=== PATIENT | male | born 1955 | race Caucasian/White ===

== ENCOUNTER → 2020-01-26 09:56 | Outpatient (CLI) | payer BC, SELFPAY ==
--- NOTE | ~2020-01-26 | XR_ITS ---
EXAMINATION: XR UGIAC w small bowel EXAM DATE: 01/26/2020 11:38 INDICATION: Episodes of upper abdominal pain. TECHNIQUE: Forwarder Operator radiograph was acquired. Standard single and double contrast barium upper GI examina tion was performed followed by small bowel series. Spot images of the terminal ileum were acquired. The DAP for this procedure was 7.8 Gycm2. There is no prior study for comparison. FINDINGS: There is no esophageal stricture, diverticulum or mass identified. There is small sliding g astroesophageal hiatal hernia, small amount of reflux. The stomach has a normal appearance without evidence of mass lesion, ulceration or filling defect. T here is normal rugal fold pattern. The duodenum and duodenal sweep are normal in appearance. Ileal and jejunal fold patterns are normal. There is no small bowel wall thickening or mass effect d isplacing small bowel. There are no intraluminal filling defects identified. There is no small malini l dilation. Terminal ileum is normal in appearance. Contrast reached the colon at about 15 minutes, rapid transit time. IMPRESSION: Small sliding hiatal hernia, small amount of reflux. Reviewed, dictated and finalized at location B.
== END ==
PROVIDERS: PCP Internal Medicine; Visit Provider Internal Medicine
DX: R10.9 Unspecified abdominal pain (principal); K44.9 Diaphragmatic hernia without obstruction or gangrene
CPT/HCPCS: 74246; 74248

== ENCOUNTER 2021-01-04 01:09 | Day surgery (SDC) | payer BC, SELFPAY ==
[2020-12-27 09:53] VITALS: BMI 25.0
[2021-01-04 06:32] VITALS: BP 131/78; PULSE 67; RESP 16; TEMP 36.3; O2SAT 98
[2021-01-04] MEDS: LACTATED RINGERS 1,000 ML 150 ML IV CONT (06:46)
[2021-01-04 06:50] LABS: Glucose Point of Care 137 mg/dl (65-105)
--- NOTE | 2021-01-04 07:08 | WPDANESEPPF ---
Anes - Initial Pre Proc Eval Procedure: Operation Date: 01/04/21 07:30 Proposed Procedures p Screening Colonoscopy - Zurdo Gallo MD Date/Time: 01/04/21 07:08 Surgeon: Zurdo Gallo MD Pre Op Diagnosis: neoplasm screening Patient Data Age: 65 Gender: M Height: 1.78 m Weight: 74.8 kg Last Vital Signs Temp 97.4 F L 01/04/21 06:32 Pulse 67 01/04/21 06:32 Resp 16 01/04/21 06:32 BP 131/78 01/04/21 06:32 Pulse Ox 98 01/04/21 06:32 Allergies Allergy/AdvReac Type Severity Reaction Status Date / Time No Known Allergies Allergy Verified 01/04/21 06:27 Home Medications Medication Instructions Recorded Confirmed Type finasteride 5 mg tablet 5 mg PO DAILY tablet 06/17/19 01/04/21 History fluocinonide 0.05 % topical cream 1 applic TOPICAL BID #15 gm 06/17/19 01/04/21 Rx insulin pump syringe 1.8 mL #10 each 06/17/19 01/04/21 History triamcinolone acetonide 0.1 % 1 applic TOPICAL BID #15 gm 06/17/19 01/04/21 Rx topical cream B complex-C 500 mg-folic 400 1 tablet PO DAILY 01/19/20 01/04/21 History mcg-zinc 24 mg-copper 3 mg-vit E tablet duloxetine 30 mg capsule,delayed 30 mg PO DAILY 10/19/20 01/04/21 History release sodium,potassium,mag sulfates See Rx Instructions .ROUTE 12/26/20 Rx [Suprep Bowel Prep Kit] .COMPLEX #1 ml doxazosin 8 mg PO DAILY 12/27/20 01/04/21 History icosapent ethyl [Vascepa] 2 g PO BID 12/27/20 01/04/21 History insulin lispro [Humalog U-100 See Rx Instructions .ROUTE .COMPLEX 12/27/20 01/04/21 History Insulin] insulin pump syringe [Paradigm 12/27/20 01/04/21 History [place]] losartan 25 mg PO DAILY 12/27/20 01/04/21 History simvastatin 10 mg PO DAILY 12/27/20 01/04/21 History Laboratory Tests 01/04/21 06:46 POC Capillary Glucose 137 mg/dl H mg/dl (65-105) Patient hx anesthesia problems: none Family hx anesthesia problems: none [facility] Past Medical History Medical History (Updated 10/19/20 @ 12:20 by Ansley Hunt [employer]IM CONTROLLER) Abdominal pain Benign essential hypertension BMI 24.0-24.9, adult BMI 25.0-25.9,adult Colon cancer screening Depressed mood Diabetes mellitus type 2, insulin dependent Encounter for routine adult health examination without abnormal findings Encounter for special screening examination for neoplasm of prostate Gastroparesis Hearing loss History of elevated PSA Medial epicondylitis of right elbow Mucocele of buccal mucosa RLS (restless legs syndrome) Sciatica Short-term memory loss Tinnitus of both ears Trigger finger of right hand Family History Family History Father Diabetes mellitus Hypertension Family history of arthritis Family history of Alzheimer's disease Mother Family history of arthritis Family history of lymphoma Social History Social History Smoking status: Never smoker Alcohol intake: current Drinks per week: 4 Alcohol use details: WINE Substance use: never Substance use type: does not use Living arrangements: alone Spiritual care concerns: No Anes - Eval Final PreProcedure Day of Procedure 01/04/21 07:08 Patient weight: normal Heart: regular rate and rhythm Lungs: clear to auscultation Airway: Mallampati scale class II Neurological: alert and oriented Last oral intake: >/= 8 hours ASA classification: III Emergent: no Anesthetic plan: proceed Anesthesia type and monitoring: general GIVS and standard monitoring Informed Consent: The patient's anesthetic plan and its attendant risks and benefits were discussed with the patient/family/POA. Questions were solicited and answers provided to the satisfaction of the patient/family/POA.
--- NOTE | 2021-01-04 07:10 | PM.HPGS ---
History of Present Illness History of Present Illness Consent: Risks, benefits, and alternatives have been discussed and questions answered. Patient agrees to proceed with procedure. Chief complaint: neoplasm screening Narrative: Caesar Jackson is a 65 year old male referred for colon cancer screening. His last colonoscopy was 10 years ago Review of Systems Review of Systems: All systems reviewed & are unremarkable except as noted in HPI and below PMFSH Past Medical History Medical History Abdominal pain Benign essential hypertension BMI 24.0-24.9, adult BMI 25.0-25.9,adult Colon cancer screening Depressed mood Diabetes mellitus type 2, insulin dependent Encounter for routine adult health examination without abnormal findings Encounter for special screening examination for neoplasm of prostate Gastroparesis Hearing loss History of elevated PSA Medial epicondylitis of right elbow Mucocele of buccal mucosa RLS (restless legs syndrome) Sciatica Short-term memory loss Tinnitus of both ears Trigger finger of right hand Family History Family History Father Diabetes mellitus Hypertension Family history of arthritis Family history of Alzheimer's disease Mother Family history of arthritis Family history of lymphoma Social History Social History Smoking status: Never smoker Alcohol intake: current Drinks per week: 4 Alcohol use details: WINE Substance use: never Substance use type: does not use Living arrangements: alone Spiritual care concerns: No Meds Home Medications and Allergies Home Medications Medication Instructions Recorded Confirmed Type finasteride 5 mg tablet 5 mg PO DAILY tablet 06/17/19 01/04/21 History fluocinonide 0.05 % topical cream 1 applic TOPICAL BID #15 gm 06/17/19 01/04/21 Rx insulin pump syringe 1.8 mL #10 each 06/17/19 01/04/21 History triamcinolone acetonide 0.1 % 1 applic TOPICAL BID #15 gm 06/17/19 01/04/21 Rx topical cream B complex-C 500 mg-folic 400 1 tablet PO DAILY 01/19/20 01/04/21 History mcg-zinc 24 mg-copper 3 mg-vit E tablet duloxetine 30 mg capsule,delayed 30 mg PO DAILY 10/19/20 01/04/21 History release sodium,potassium,mag sulfates See Rx Instructions .ROUTE 12/26/20 Rx [Suprep Bowel Prep Kit] .COMPLEX #1 ml doxazosin 8 mg PO DAILY 12/27/20 01/04/21 History icosapent ethyl [Vascepa] 2 g PO BID 12/27/20 01/04/21 History insulin lispro [Humalog U-100 See Rx Instructions .ROUTE .COMPLEX 12/27/20 01/04/21 History Insulin] insulin pump syringe [Paradigm 12/27/20 01/04/21 History [place]] losartan 25 mg PO DAILY 12/27/20 01/04/21 History simvastatin 10 mg PO DAILY 12/27/20 01/04/21 History Allergies Allergy/AdvReac Type Severity Reaction Status Date / Time No Known Allergies Allergy Verified 01/04/21 06:27 Vital Signs Vital Signs - 24 hr 01/04/21 06:32 Temperature 36.3 C L Pulse Rate 67 Respiratory Rate 16 Blood Pressure 131/78 Pulse Oximetry 98 Exam Resp: Auscultation: clear to auscultation bilaterally Cardio: Rate: regular rate Rhythm: regular rhythm GI: GI Palp: Yes Soft to palpation and No Tenderness to palpation present (GI) Assessment and Plan Assessment and plan (1) Colon cancer screening: Code(s): Z12.11 - Encounter for screening for malignant neoplasm of colon Status: Acute Assessment and Plan: Colonoscopy with possible biopsy or polypectomy or cautery or injection of substances.
[2021-01-04 07:45] VITALS: BP 101/61; PULSE 49; RESP 16; O2SAT 98
[2021-01-04 07:55] VITALS: BP 107/67; PULSE 53; RESP 16; O2SAT 99
[2021-01-04 07:57] LABS: Glucose Point of Care 125 mg/dl (65-105)
== END 2021-01-04 08:20 | disposition home or self-care (01) ==
PROVIDERS: PCP Internal Medicine; Visit Provider Internal Medicine Gastroenterology
PROC: 0DJD8ZZ Inspection of Lower Intestinal Tract, Via Natural or Artificial Opening Endoscopic (ICD-10-PCS; CPT 45378; principal; 2021-01-04 07:30)
DX: Z12.11 Encounter for screening for malignant neoplasm of colon (principal); K57.30 Diverticulosis of large intestine without perforation or abscess without bleeding; I10 Essential (primary) hypertension; F32.9 Major depressive disorder, single episode, unspecified; E11.9 Type 2 diabetes mellitus without complications; E11.43 Type 2 diabetes mellitus with diabetic autonomic (poly)neuropathy; K31.84 Gastroparesis; Z79.4 Long term (current) use of insulin; G25.81 Restless legs syndrome
CPT/HCPCS: 45378; 82948; J2704; J7120

== ENCOUNTER 2021-06-04 10:05 | Outpatient (CLI) | payer BC, SELFPAY ==
--- NOTE | 2021-06-04 10:00 | ECG_ITS ---
Measurements Intervals [place] Rate: 59 P: 51 RI: 139 QRS: 13 QRSD: 102 T: 24 QT: 401 QTc: 399 Interpretive Statements SINUS BRADYCARDIA INCOMPLETE RIGHT BUNDLE BRANCH BLOCK BORDERLINE ECG Electronically Signed On 06-04-2021 11:41:50 CIVIL ENGINEER by Dayron Jon D.O.
[2021-06-04 11:43] LABS: Anion Gap 3 mmol/L (8-16); Blood Urea Nitrogen 20 mg/dL (9-20); Calcium 9.1 mg/dL (8.4-10.2); Carbon Dioxide 25 mmol/L (22-30); Chloride 106 mmol/L (98-107); Estimated Glomerular Filt Rate > 60; Glucose 186 mg/dL (65-110); Sodium 134 mmol/L (137-145)
== END 2021-06-04 10:06 | disposition home or self-care (01) ==
LOC: ANHSURGERY 10:10
PROVIDERS: Anesthesiology; PCP Internal Medicine; Visit Provider Urology
DX: N40.0 Benign prostatic hyperplasia without lower urinary tract symptoms (principal); E11.9 Type 2 diabetes mellitus without complications; Z79.4 Long term (current) use of insulin; I10 Essential (primary) hypertension; Z01.818 Encounter for other preprocedural examination; I45.10 Unspecified right bundle-branch block
CPT/HCPCS: 36415; 80048; 87086; 93005

== ENCOUNTER 2021-06-11 01:45 | Day surgery (SDC) | payer BC, SELFPAY ==
[2021-05-29 12:43] VITALS: BMI 25.9
--- NOTE | 2021-05-29 13:06 | PC.NURSE ---
Report to the Outpatient Waiting Room, entrance under the green pavilion located off [facility], at time __6:00AM on date __06/11/21 . OR Time: ___7:30AM . - You and your visitor will be asked a series of questions to screen for COVID 19 for your protection. - A mask is required within the hospital. - Only one visitor is allowed at this time. Patient visitors will be guided where to wait when not with patient. Preoperative COVID Testing Requirements: No COVID Test needed if: (proof is required; if not received patient will have Rapid Test prior to entry) - Patient has received COVID Vaccine at least 14 days prior to procedure date or - Patient has positive COVID test result within last 90 days of surgery date. COVID Test needed if above criteria is not met If not COVID vaccinated a COVID test must be conducted within 72 hours of surgery and patient is asked to isolate self from time of testing until procedure. You will go to the [facility] for your COVID testing. The [facility] Testing site is located at the corner of [address] from [facility]. You will only be called if COVID results are positive and your surgeon may reschedule your elective surgery date. Patients may have clear liquids (water, carbonated beverages, clear teas, apple juice) until 3 hours prior to surgery with a maximum of 20 ounces. - No food from midnight until time of surgery - Infants may have breast milk until 4 hours before surgery, infant formula 6 hours prior to surgery. - Children will be allowed to drink immediately following surgery. If applicable, please bring a bottle or sippy cup to assist with drinking. Juice, water, soda, and popsicles are readily available. For infants on formula, please bring formula the day of surgery. Pacifiers are allowed. Take the following medications with a SIP of water the morning of surgery: ___DULOXETINE, BASAL RATE-INSULIN PUMP Medications to discontinue per physician ALL VITAMINS/SUPPLEMENTS 3 DAYS PRE-OP Date to take last dose 06/08/21 Please no make-up, nail khmer, hairspray, perfume, deodorant, or body powder the day of surgery. No jewelry (including any body piercings) or valuables the day of surgery, leave them at home. Please take a shower or bath the night before, or the morning of, surgery with an antibacterial soap. Wear comfortable, loose fitting clothing. Children are encouraged to wear pajamas. - Jewelry must be removed prior to entering the operating room. Rings and piercings that are not removed may be cut off. - The hospital will not accept responsibility for valuables. - Please leave all valuables, including medications, at home the day of surgery. If you are going home after surgery, a licensed truck driver heavy must drive you home. - NO public transportation without another adult. - We recommend that an adult stay with you for 24 hours following discharge. - We also recommend that you do not drive, make important decision, drink alcoholic beverages, or take any drugs that were not prescribed by your health care provider for at least 24 hours after your discharge time. For Pediatric surgeries, we recommend two adults accompany the child home (only one inside the building at this time). Follow any additional instructions given to you from your surgeon. Telephone instructions given to __PATIENT and asked if any additional questions and then verbalized understanding. Patient advised to call surgeon office or pre surgery nurse liaison [phone] if any additional questions.
[2021-06-11] VITALS (7 sets, daily range): BP systolic 122–178; BP diastolic 67–96; PULSE 52–67; RESP 14–16; TEMP 36.9; O2SAT 96–99
[2021-06-11] MEDS: LACTATED RINGERS 1,000 ML 30 ML IV CONT (06:30)
[2021-06-11 06:36] LABS: Glucose Point of Care 127 mg/dl (65-105)
--- NOTE | 2021-06-11 06:54 | WPDANESEPPF ---
Anes - Initial Pre Proc Eval Procedure: Operation Date: 06/11/21 07:30 Proposed Procedures p Urolift - Stoney Burnette MD Date/Time: 06/11/21 06:54 Surgeon: Stoney Burnette MD Pre Op Diagnosis: bph Patient Data Age: 66 Gender: M Height: 1.78 m Weight: 82.9 kg Allergies Allergy/AdvReac Type Severity Reaction Status Date / Time No Known Allergies Allergy Verified 05/29/21 12:36 Home Medications Medication Instructions Recorded Confirmed Type finasteride 5 mg tablet 5 mg PO DAILY tablet 06/17/19 05/29/21 History insulin pump syringe 1.8 mL #10 each 06/17/19 04/26/21 History B complex-C 500 mg-folic 400 1 tablet PO DAILY 01/19/20 05/29/21 History mcg-zinc 24 mg-copper 3 mg-vit E tablet duloxetine 30 mg capsule,delayed 30 mg PO DAILY 10/19/20 05/29/21 History release Paradigm [place] 12/27/20 04/26/21 History doxazosin 8 mg PO DAILY 12/27/20 05/29/21 History icosapent ethyl [Vascepa] 2 g PO BID 12/27/20 05/29/21 History losartan 25 mg PO QAM 12/27/20 05/29/21 History simvastatin 10 mg PO DAILY 12/27/20 05/29/21 History coenzyme Q10 75 mg capsule 75 mg PO DAILY 03/06/21 05/29/21 History triamcinolone acetonide 0.1 % 1 applic TOPICAL BID PRN #15 gm 03/06/21 05/29/21 Rx topical cream insulin aspart U-100 [Novolog See Rx Instructions .ROUTE .COMPLEX 05/29/21 05/29/21 History U-100 Insulin aspart] Laboratory Tests 06/11/21 06:34 POC Capillary Glucose 127 mg/dl H mg/dl (65-105) Patient hx anesthesia problems: none Family hx anesthesia problems: none Results Review: All pre-operative results and documents have been reviewed as part of the pre-operative evaluation. [facility] Past Medical History Medical History (Updated 04/25/21 @ 12:03 by Ansley Hunt [facility]) Abdominal pain Benign essential hypertension BMI 24.0-24.9, adult BMI 25.0-25.9,adult BMI 26.0-26.9,adult Colon cancer screening Depressed mood Diabetes mellitus type 2, insulin dependent Diverticulosis Elevated PSA Encounter for routine adult health examination without abnormal findings Encounter for special screening examination for neoplasm of prostate Gastroparesis Hearing loss History of elevated PSA Low back pain Medial epicondylitis of right elbow Mucocele of buccal mucosa RLS (restless legs syndrome) Sciatica Short-term memory loss Shoulder pain, bilateral Tinnitus of both ears Trigger finger of right hand Family History Family History Father Diabetes mellitus Hypertension Family history of arthritis Family history of Alzheimer's disease Mother Family history of arthritis Family history of lymphoma Social History Social History Smoking status: Never smoker Tobacco type: cigars Additional smoking assessment comments: 1 CIGAR/MONTH, X 20 YRS Alcohol intake: current Drinks per week: 4 Alcohol use details: WINE Substance use: never Substance use type: does not use Living arrangements: alone Spiritual care concerns: No Anes - Eval Final PreProcedure Day of Procedure 06/11/21 06:54 Patient weight: overweight Heart: regular rate and rhythm Lungs: clear to auscultation and normal air movement Airway: Mallampati scale class II Neurological: alert and oriented Last oral intake: >/= 8 hours ASA classification: III Emergent: no Anesthetic plan: proceed Anesthesia type and monitoring: general GIVS and LMA Results Review: All pre-operative results and documents have been reviewed as part of the pre-operative evaluation. Informed Consent: The patient's anesthetic plan and its attendant risks and benefits were discussed with the patient/family/POA. Questions were solicited and answers provided to the satisfaction of the patient/family/POA.
--- NOTE | 2021-06-11 07:31 | WPDHPUPDATE1 ---
History and Physical Update Update Date/Time: 06/11/21 07:31 History and Physical has been reviewed, including an updated exam of the patient. There are NO changes in the patient's condition. Risks, benefits, and alternatives have been discussed and questions answered. Patient agrees to proceed with procedure. Proceed with urolift
[2021-06-11] MEDS: ceFAZolin 2 GM/D5W 50 ML 2 GM/50 ML BAG IVPB (07:38)
--- NOTE | 2021-06-11 08:07 | W.PM.PROC2 ---
Procedure Note - Detailed Date of Procedure 06/11/21 Pre-op Diagnosis bph Post-op Diagnosis same Procedure Performed UroLift with 6 zehra Surgeon Stoney Burnette MD Anesthesia general Description of Procedure Patient is taken the operative suite correctly identified. Once anesthesia was obtained was placed in dorsal lithotomy position and prepped and draped usual sterile fashion. A cystoscope was inserted into the bladder. There were no tumors noted. We placed a total of 6 zehra. The 1st zehra were placed 1 cm proximal to the bladder neck on the right and left lobe. Second set were placed at the level of the verumontanum. Third set was used to displace the right lobe in the midportion to the right. Patient had what appeared to be an open prostatic fossa at termination procedure. 2% viscous lidocaine was inserted urethra patient is taken recovery stable condition. Drains No Packing No Pathology none sent Complications No immediate complications Condition stable Disposition PACU
[2021-06-11] MEDS: oxyCODONE HCL (*CRX) 5 MG TAB IR PO (08:45)
[2021-06-11 10:21] LABS: Glucose Point of Care 130 mg/dl (65-105)
== END 2021-06-11 10:48 | disposition home or self-care (01) ==
PROVIDERS: PCP Internal Medicine; Visit Provider Urology
PROC: 0T7D8DZ Dilation of Urethra with Intraluminal Device, Via Natural or Artificial Opening Endoscopic (ICD-10-PCS; CPT 52441; principal; 2021-06-11 07:30)
DX: N40.1 Benign prostatic hyperplasia with lower urinary tract symptoms (principal); R39.198 Other difficulties with micturition; R39.12 Poor urinary stream; I10 Essential (primary) hypertension; E11.9 Type 2 diabetes mellitus without complications; G25.81 Restless legs syndrome; K31.84 Gastroparesis; Z79.4 Long term (current) use of insulin; Z96.41 Presence of insulin pump (external) (internal); F17.290 Nicotine dependence, other tobacco product, uncomplicated
CPT/HCPCS: 52441; 52442 ×5; 82948; A9270; J0690; J1100; J2250; J2405; J2704; J3010; J7120; L8699

== ENCOUNTER 2021-06-18 09:02 | Outpatient (CLI) | payer BC, SELFPAY ==
[2021-06-18 09:38] LABS: Basophils Percent Auto 0.3 % (0.2-1.2); Eosinophils Absolute Auto 0.2 K/mm3 (0-0.3); Eosinophils Percent Auto 3.8 % (0-4.4); Hematocrit 36.3 % (42.0-52.0); Hemoglobin 12.6 g/dL (14.0-18.0); Immature Granulocyte Absolute 0.02 K/mm3 (0.00-0.031); Immature Granulocyte Percent A 0.3 % (0-0.5); Lymphocytes Absolute Auto 1.45 K/mm3 (0.9-3.2); Mean Corpuscular HGB Conc 34.7 g/dl (32-36); Mean Corpuscular Hemoglobin 30.4 pg (26-34); Mean Corpuscular Volume 87.7 fl (80-100); Mean Platelet Volume 10.9 fl (7.4-10.4); Monocytes Absolute Auto 0.6 K/mm3 (0.1-0.6); Monocytes Percent Auto 9.8 % (2.6-8.5); Neutrophils Absolute Auto 3.5 K/mm3 (1.3-6.7); Neutrophils Percent Auto 60.8 % (45.5-73.1); Platelet Count Result 171 k/mm3 (150-375); Red Blood Count 4.14 M/mm3 (4.6-6.20); Red Cell Distribution Width 11.9 % (11.5-14.5); White Blood Count 5.8 K/mm3 (4.5-10.0)
[2021-06-18 09:48] LABS: Alanine Aminotransferase 28 U/L (4-50); Albumin Level 4.4 g/dL (3.5-5.1); Alkaline Phosphatase 81 U/L (38-126); Anion Gap 10 mmol/L (8-16); Aspartate Amino Transferase 34 U/L (17-59); Bilirubin,Total 0.5 mg/dL (0.2-1.3); Blood Urea Nitrogen 19 mg/dL (9-20); Calcium 9.2 mg/dL (8.4-10.2); Carbon Dioxide 27 mmol/L (22-30); Chloride 99 mmol/L (98-107); Estimated Glomerular Filt Rate > 60; Glucose 230 mg/dL (65-110); Potassium 4.5 mmol/L (3.4-5.0); Sodium 136 mmol/L (137-145)
[2021-06-18 09:59] LABS: Troponin I < 0.012 ng/mL (0.000-0.034)
== END 2021-06-18 09:03 | disposition home or self-care (01) ==
PROVIDERS: PCP Internal Medicine; Visit Provider Internal Medicine
DX: E78.5 Hyperlipidemia, unspecified (principal); I10 Essential (primary) hypertension; Z51.81 Encounter for therapeutic drug level monitoring; Z79.899 Other long term (current) drug therapy; R07.89 Other chest pain
CPT/HCPCS: 36415; 80053; 84484; 85025

== ENCOUNTER 2021-07-22 02:38 | Day surgery (SDC) | payer BC, SELFPAY ==
[2021-07-19 16:36] VITALS: BMI 25.9
[2021-07-22] VITALS (8 sets, daily range): BP systolic 121–140; BP diastolic 66–74; PULSE 43–57; RESP 10–21; TEMP 36.3–36.6; O2SAT 95–99; BMI 25.9
[2021-07-22] MEDS: SODIUM CHLORIDE 0.9% IV 500 ML 100 ML IV CONT (07:33)
[2021-07-22 07:41] LABS: Basophils Percent Auto 0.5 % (0.2-1.2); Eosinophils Absolute Auto 0.2 K/mm3 (0-0.3); Eosinophils Percent Auto 3.9 % (0-4.4); Hematocrit 36.1 % (42.0-52.0); Hemoglobin 12.4 g/dL (14.0-18.0); Immature Granulocyte Absolute 0.01 K/mm3 (0.00-0.031); Immature Granulocyte Percent A 0.2 % (0-0.5); Lymphocytes Absolute Auto 1.67 K/mm3 (0.9-3.2); Lymphocytes Percent Auto 28.4 % (18.3-44.2); Mean Corpuscular HGB Conc 34.3 g/dl (32-36); Mean Corpuscular Hemoglobin 30.2 pg (26-34); Mean Platelet Volume 10.9 fl (7.4-10.4); Monocytes Absolute Auto 0.5 K/mm3 (0.1-0.6); Monocytes Percent Auto 8.2 % (2.6-8.5); Neutrophils Absolute Auto 3.5 K/mm3 (1.3-6.7); Neutrophils Percent Auto 58.8 % (45.5-73.1); Platelet Count Result 160 k/mm3 (150-375); Red Cell Distribution Width 12.4 % (11.5-14.5); White Blood Count 5.9 K/mm3 (4.5-10.0)
[2021-07-22 07:45] LABS: Anion Gap 9 mmol/L (8-16); Blood Urea Nitrogen 20 mg/dL (9-20); Carbon Dioxide 25 mmol/L (22-30); Chloride 104 mmol/L (98-107); Estimated CRCL calculation 82 ml/min; Estimated Glomerular Filt Rate > 60; Glucose 214 mg/dL (65-110); Potassium 3.9 mmol/L (3.4-5.0); Sodium 138 mmol/L (137-145)
[2021-07-22 07:46] LABS: Prothrombin Time 12.3 Seconds (11.1-14.7)
--- NOTE | 2021-07-22 08:25 | WPDMODSED ---
Moderate Sedation Note-Pt Data Patient Data Allergies Allergy/AdvReac Type Severity Reaction Status Date / Time No Known Allergies Allergy Verified 07/19/21 17:19 Home Medications Medication Instructions Recorded Confirmed Type finasteride 5 mg tablet 5 mg PO DAILY tablet 06/17/19 07/19/21 History insulin pump syringe 1.8 mL #10 each 06/17/19 06/28/21 History duloxetine 30 mg capsule,delayed 30 mg PO DAILY 10/19/20 07/22/21 History release Paradigm [facility] 12/27/20 06/28/21 History icosapent ethyl [Vascepa] 2 g PO BID 12/27/20 07/22/21 History losartan 25 mg PO QAM 12/27/20 07/19/21 History insulin aspart U-100 [Novolog See Rx Instructions .ROUTE .COMPLEX 05/29/21 07/22/21 History U-100 Insulin aspart] nitroglycerin 0.4 mg sublingual 0.4 mg SUBLINGUAL Q5M PRN #25 06/18/21 07/22/21 Rx tablet tablet doxazosin 8 mg tablet 8 mg PO DAILY #90 tablet 06/25/21 07/19/21 Rx atorvastatin 20 mg tablet 20 mg PO DAILY #90 tablet 06/28/21 07/19/21 Rx metoprolol succinate 25 mg 25 mg PO DAILY #90 tablet 06/28/21 07/19/21 Rx tablet,extended release 24 hr Osteo Bi-Flex Triple Strength 1 tablet PO BID 07/19/21 07/22/21 History aspirin 81 mg PO DAILY 07/19/21 07/22/21 History coenzyme Q10 200 mg PO DAILY 07/19/21 07/19/21 History triamcinolone acetonide 1 applic TOPICAL BID PRN 07/19/21 07/22/21 History vitamin B complex [B 1 tablet PO DAILY 07/19/21 07/22/21 History Complex-Vitamin B12] Current Medications: Active Medications Sodium Chloride (Normal Saline Iv) 500 mls @ 100 mls/hr IV CONT .Q5H DANIEL Last Admin: 07/22/21 07:33 Dose: 100 mls/hr Documented by: Sedation/Anesthesia: No previous sedation/anesthesia problems (including family history). [facility] Past Medical History Medical History (Updated 06/28/21 @ 09:25 by Ansley Hunt [facility]) Abdominal pain Abnormal stress test Anemia Benign essential hypertension BMI 24.0-24.9, adult BMI 25.0-25.9,adult BMI 26.0-26.9,adult Chest pain Colon cancer screening Depressed mood Diabetes mellitus type 2, insulin dependent Diverticulosis Elevated PSA Encounter for routine adult health examination without abnormal findings Encounter for special screening examination for neoplasm of prostate Follow up Gastroparesis Hearing loss History of elevated PSA Low back pain Medial epicondylitis of right elbow Mucocele of buccal mucosa RLS (restless legs syndrome) Sciatica Short-term memory loss Shoulder pain, bilateral Tinnitus of both ears Trigger finger of right hand Family History Family History Father Diabetes mellitus Hypertension Family history of arthritis Family history of Alzheimer's disease Mother Family history of arthritis Family history of lymphoma Social History Social History Smoking status: Light tobacco smoker Tobacco type: cigars Second hand tobacco smoke exposure: Yes Additional smoking assessment comments: occasional cigar Alcohol intake: current Drinks per week: 6 Alcohol use details: beer or wine. typically average 2 drinks in a setting. Substance use: never Substance use type: does not use Living arrangements: alone Spiritual care concerns: No Mod Sed Physical Exam Physical Exam Pre Procedural Exam: Normal: Appearance, Throat, Airway, Lungs, Heart Size, Heart Rate, Heart Rhythm and Extremities Hours since solid foods: 12 Hours since liquid intake: 12 Mallampati Classification: class II Internal Medicine - PN: Obj Da Vital Signs Vital Signs: Vital Signs - 24 hr 07/22/21 07:24 Temperature 36.6 C Pulse Rate 57 L Respiratory Rate 11 L Blood Pressure 136/66 Pulse Oximetry 98 Meds/Results Medications: Active Medications Generic Name Dose Route Start Last Admin Trade Name Freq PRN Reason Stop Dose Admin Sodium Chloride 500 mls @ 100 mls/hr 07/22/21 07:00 07/22/21 07:33 N
--- NOTE | 2021-07-22 09:03 | WPDCARDPROC ---
Cardiac Cath Procedure Note Date of procedure:: 07/22/21 Performing physician:: Jamel Moody MD Indication:: Chest pain abnormal stress test Brief clinical history:: this is a 66-year-old patient with longstanding diabetes who had an episode of chest pain recently when he was exerting in the cold weather. He has not had any subsequent symptoms. An nuclear stress test was reported as showing evidence of anterior ischemia. Procedure Procedure performed:: left ventriculogram coronary angiogram Angio-Seal to right femoral artery Sedation/Medication given:: fentanyl 50 mg Versed 2 mg case start time 843 a.m. case end time 8:59 a.m. Access site:: right femoral artery Estimated blood loss:: minimal Procedure note:: patient was brought to the cardiac catheterization lab in the postabsorptive state where the right femoral triangle was prepared and draped in the usual fashion. Anesthesia was provided with 1% lidocaine infiltrated locally. Using the modified Seldinger technique a 5 [place] sheath was placed into the right common femoral artery. After this left heart catheterization was take carried out. A 5 [place] angled pigtail catheter was used to measure left-sided hemodynamics and to perform a left ventriculogram in the our AO projection. Following this the left coronary artery was engaged and injected using a standard 5 [place] FL4 catheter. The right coronary was engaged and injected using a standard 5 [place] JR4 catheter. An angiogram was then done of the femoral artery through the sheath after which an Angio-Seal device was deployed at the site of the arterial puncture with a good hemostatic result. The procedure was well tolerated there were no apparent complications. He left the cathode washer with no evidence of groin hematoma. Findings:: Hemodynamics: Central aortic pressure was 124/58 left ventricle 124/5 end-diastolic pressure 14 there is no systolic gradient on pullback across the aortic valve. Left ventricle: The LV is normal in size all segments contract properly there were no regional wall motion abnormalities the global ejection fraction is 55% the left main coronary artery is medium in caliber and widely patent the left anterior descending is a medium caliber artery extending down to the apex. The LAD and its branches are smooth and angiographically normal in appearance circumflex is a medium caliber artery giving rise to the marginal branches which all appeared to be smooth and angiographically normal. The right coronary artery is large in caliber dominant to the posterior circulation. The right coronary is smooth and angiographically normal in appearance. Conclusion:: 1. Right coronary dominant circulation with no angiographic abnormalities 2. normal left ventricular systolic function 3. Angio-Seal to right femoral artery 4. false-positive nuclear stress test Jamel Moody MD FACC
--- NOTE | 2021-07-22 12:32 | SUR.PHASEII ---
discharge instruction reviewed with pt. Opportunity to answer questions. Pt verbalized understanding. Escorted off floor via w/c.
== END 2021-07-22 12:45 | disposition home or self-care (01) ==
PROVIDERS: PCP Internal Medicine; Visit Provider Specialist
PROC: 4A023N7 Measurement of Cardiac Sampling and Pressure, Left Heart, Percutaneous Approach (ICD-10-PCS; CPT 93452; principal; 2021-07-22 08:30)
DX: R94.39 Abnormal result of other cardiovascular function study (principal); R07.9 Chest pain, unspecified; I10 Essential (primary) hypertension; E11.9 Type 2 diabetes mellitus without complications; G25.81 Restless legs syndrome; D64.9 Anemia, unspecified; Z72.0 Tobacco use; Z79.4 Long term (current) use of insulin; Z96.41 Presence of insulin pump (external) (internal); Z79.82 Long term (current) use of aspirin
CPT/HCPCS: 36415; 80048; 85025; 85610; 93458; C1760; C1887; C1894; G0269; J1200; J1644; J2250; J3010; J7040

== ENCOUNTER 2022-10-09 11:43 | Outpatient (CLI) | payer OTHER, SELFPAY | END 2022-10-09 11:44 | disposition home or self-care (01) | PROVIDERS: PCP Internal Medicine; Visit Provider Internal Medicine | DX: M79.672 Pain in left foot (principal) | CPT/HCPCS: 73630 ==

== ENCOUNTER 2022-12-03 15:25 | Outpatient (CLI) | payer OTHER, SELFPAY ==
--- NOTE | ~2022-12-03 | XR_ITS ---
EXAM: XR shoulder RT min 2V DATE: 12/03/2022 15:38 HISTORY: M19.90 - Unspecified osteoarthritis, unspecified site . COMPARISON: None available. FINDINGS: Normal mineralization. No fracture or dislocation. No lytic or blastic lesion. Moderate de generative change at the AC joint and glenohumeral joint. No erosion or periosteal change. Soft tissu es within normal limits. IMPRESSION: Moderate right shoulder polyarticular osteoarthritis. Reviewed, dictated and finalized at location K.
== END 2022-12-03 15:26 | disposition home or self-care (01) ==
PROVIDERS: PCP Internal Medicine; Visit Provider Internal Medicine
DX: M19.011 Primary osteoarthritis, right shoulder (principal)
CPT/HCPCS: 73030

== ENCOUNTER 2023-01-13 11:21 | Outpatient (NON) | payer OTHER, SELFPAY | END 2023-01-13 11:22 | disposition home or self-care (01) | LOC: ANHLAB 01-14 11:23 | PROVIDERS: PCP Internal Medicine; Visit Provider Nurse Practitioner | DX: C44.41 Basal cell carcinoma of skin of scalp and neck (principal) | CPT/HCPCS: 88305 ==

== ENCOUNTER 2023-03-09 13:56 | Outpatient (NON) | payer OTHER, SELFPAY | END 2023-03-09 13:57 | disposition home or self-care (01) | LOC: ANHLAB 13:56 | PROVIDERS: PCP Internal Medicine; Visit Provider Nurse Practitioner | DX: C44.41 Basal cell carcinoma of skin of scalp and neck (principal) | CPT/HCPCS: 88305; 88331 ==

== ENCOUNTER 2023-05-28 17:32 | Outpatient (NON) | payer OTHER, SELFPAY | END 2023-05-28 17:33 | disposition home or self-care (01) | PROVIDERS: PCP Internal Medicine; Visit Provider Nurse Practitioner | DX: L81.4 Other melanin hyperpigmentation (principal); L57.8 Other skin changes due to chronic exposure to nonionizing radiation | CPT/HCPCS: 88305 ==

== ENCOUNTER 2024-01-26 09:30 | Outpatient (CLI) | payer BC, SELFPAY ==
--- NOTE | 2024-01-26 09:51 | ECG_ITS ---
Test Date: 2024-01-26 10:03:27 Measurements Intervals [place] Rate: 55 P: 49 [place]: 133 QRS: 30 QRSD: 100 T: 36 QT: 408 QTc: 390 Interpretive Statements SINUS BRADYCARDIA INCOMPLETE RIGHT BUNDLE BRANCH BLOCK [90+ ms QRS DURATION, TERMINAL R IN V1/V2, 40+ ms S IN I/aVL/V4/V5/V6] No previous ECG available for comparison Electronically Signed On 01-26-2024 10:25:38 CDT by Kwasi Ruiz M.D.
[2024-01-26 10:40] LABS: Anion Gap 9 mmol/L (4-12); Blood Urea Nitrogen 19 mg/dL (9-20); Calcium 8.8 mg/dL (8.4-10.2); Carbon Dioxide 27 mmol/L (22-30); Chloride 101 mmol/L (98-107); Estimated Glomerular Filt Rate > 60; Glucose 125 mg/dL (65-110); Sodium 137 mmol/L (137-145)
[2024-01-26 10:42] LABS: Basophils Percent Auto 0.4 % (0.2-1.2); Eosinophils Absolute Auto 0.1 K/mm3 (0-0.3); Eosinophils Percent Auto 1.9 % (0-4.4); Hematocrit 38.9 % (42.0-52.0); Hemoglobin 12.9 g/dL (14.0-18.0); Immature Granulocyte Absolute 0.02 K/mm3 (0.00-0.031); Immature Granulocyte Percent A 0.3 % (0-0.5); Lymphocytes Absolute Auto 1.76 K/mm3 (0.9-3.2); Lymphocytes Percent Auto 25.7 % (18.3-44.2); Mean Corpuscular HGB Conc 33.2 g/dl (32-36); Mean Corpuscular Hemoglobin 29.9 pg (26-34); Mean Platelet Volume 11.3 fl (7.4-10.4); Monocytes Absolute Auto 0.6 K/mm3 (0.1-0.6); Monocytes Percent Auto 9.3 % (2.6-8.5); Neutrophils Absolute Auto 4.3 K/mm3 (1.3-6.7); Neutrophils Percent Auto 62.4 % (45.5-73.1); Platelet Count Result 185 k/mm3 (150-375); Red Blood Count 4.32 M/mm3 (4.6-6.20); Red Cell Distribution Width 12.1 % (11.5-14.5); White Blood Count 6.9 K/mm3 (4.5-10.0)
== END 2024-01-26 09:31 | disposition home or self-care (01) ==
PROVIDERS: PCP Internal Medicine; Visit Provider Surgery
DX: E78.2 Mixed hyperlipidemia (principal); K60.1 Chronic anal fissure
CPT/HCPCS: 36415; 80048; 85025; 93005

== ENCOUNTER 2024-01-27 00:35 | Day surgery (SDC) | payer BC, SELFPAY ==
[2024-01-22 15:37] VITALS: BMI 26.2
--- NOTE | 2024-01-22 16:03 | PC.NURSE ---
Report to the Outpatient Waiting Room, entrance under the green pavilion located off [facility], at time __6:00AM on date ___01/27/24____. Planned Procedure Time: __7:30AM . Time changes happen often and if your time is changed the preop area will call you the afternoon before. - You and your visitor will be asked to self-screen and do not enter if you have any COVID symptoms. - A mask is optional within the hospital at this time. Patients may have clear liquids (water, carbonated beverages, clear teas, apple juice) until 3 hours prior to surgery with a maximum of 20 ounces. - No food from midnight until time of surgery. Take the following medications with a SIP of water the morning of surgery: ___INSULIN PUMP AT BASAL RATE DO NOT STOP ANY OF YOUR OTHER PRESCRIPTION MEDICATIONS PRIOR TO SURGERY ?EXCEPT THE FOLLOWING Medications to discontinue per physician HOLD ALL VITAMINS/SUPPLEMENTS 3 DAYS PRE-OP PER ANESTHESIA Date to take last dose 01/23/24 Please no make-up, nail senegalese, hairspray, perfume, deodorant, or body powder the day of surgery. No jewelry (including any body piercings) or valuables the day of surgery, leave them at home. Please take a shower or bath the night before, or the morning of, surgery with an antibacterial soap. Wear comfortable, loose fitting clothing. - Jewelry must be removed prior to entering the operating room. Rings and piercings that are not removed may be cut off. - The hospital will not accept responsibility for valuables. - Please leave all valuables, including medications, at home the day of surgery. If you are going home after surgery, a licensed commercial collections driver must drive you home. - NO public transportation without another adult if you receive anesthesia. - We recommend that an adult stay with you for 24 hours following discharge. - We also recommend that you do not drive, make important decision, drink alcoholic beverages, or take any drugs that were not prescribed by your health care provider for at least 24 hours after your discharge time.. Follow any additional instructions given to you from your surgeon. If you or anyone in your household have experienced Covid symptoms in the past week, please notify your surgeon or the nurse liaison at the phone number below for possible testing. Telephone instructions given to ____PATIENT and asked if any additional questions and then verbalized understanding. Patient advised to call surgeon office or pre surgery nurse liaison [phone] if any additional questions.
[2024-01-27] VITALS (8 sets, daily range): BP systolic 136–152; BP diastolic 69–94; PULSE 65–82; RESP 11–20; TEMP 36.1–36.6; O2SAT 99–100
[2024-01-27] MEDS: LACTATED RINGERS 1,000 ML 30 ML IV CONT ×2 (06:45→08:50)
[2024-01-27] MEDS: KETOROLAC 15 MG/ML VIAL (*BKC) IV PUSH (07:00)
[2024-01-27] MEDS: ACETAMINOPHEN 500 MG TABLET 1000 MG PO (07:00)
--- NOTE | 2024-01-27 07:14 | WPDANESEPPF ---
Anes - Initial Pre Proc Eval Procedure: Operation Date: 01/27/24 07:30 Proposed Procedures p Lateral Internal Sphincterotomy, Removal External Hemorrhoid - Cody Clifford MD Date/Time: 01/27/24 07:14 Surgeon: Cody Clifford MD Pre Op Diagnosis: Chr Anal Fissure Patient Data Age: 69 Gender: M Height: 1.78 m Weight: 83 kg Allergies Allergy/AdvReac Type Severity Reaction Status Date / Time No Known Allergies Allergy Verified 01/22/24 15:21 Home Medications Medication Instructions Recorded Confirmed Type insulin pump syringe 1.8 mL #10 ea 06/17/19 01/04/24 History insulin pump syringe 1.8 mL 12/27/20 01/04/24 History ([facility] [place]) losartan 25 mg tablet 25 mg PO QAM 12/27/20 01/22/24 History insulin aspart U-100 100 unit/mL See Rx Instructions .Route .COMPLEX 05/29/21 01/22/24 History subcutaneous solution (Novolog U-100 Insulin aspart) nitroglycerin 0.4 mg sublingual 0.4 mg sublingual Q5M PRN chest 06/18/21 01/22/24 Rx tablet pain #25 tabs Osteo Bi-Flex Triple Strength 2 tablet PO BID 07/19/21 01/22/24 History coenzyme Q10 200 mg tablet 200 mg PO DAILY 07/19/21 01/22/24 History vitamin B complex (B 1 tablet PO DAILY 07/19/21 01/22/24 History Complex-Vitamin B12 tablet) duloxetine 30 mg capsule,delayed 30 mg PO HS 10/09/22 01/22/24 History release cholecalciferol (vitamin D3) 100 100 mcg PO BID 10/15/22 01/22/24 History mcg (4,000 unit) tablet atorvastatin 20 mg tablet See Rx Instructions .Route 09/28/23 01/22/24 Rx .COMPLEX #90 tabs finasteride 5 mg tablet See Rx Instructions .Route 11/03/23 01/22/24 Rx .COMPLEX #90 tabs vinia 1 dose BYMOUTH DAILY 11/18/23 01/22/24 History icosapent ethyl 1 gram capsule See Rx Instructions .Route 12/28/23 01/22/24 Rx (Vascepa) .COMPLEX #360 caps ascorbic acid 125 mg-collagen, 1 cap PO DAILY 01/22/24 01/22/24 History hydrolyzed 740 mg capsule (Collagen Plus Vitamin C) psyllium husk 3.4 gram/5.4 gram 1 tsp PO BID 01/22/24 01/22/24 History oral powder (Metamucil) turmeric root extract 1,053 mg 1,076 mg PO DAILY 01/22/24 01/22/24 History tablet Patient hx anesthesia problems: none Family hx anesthesia problems: none Results Review: All pre-operative results and documents have been reviewed as part of the pre-operative evaluation. [facility] Past Medical History Medical History Abdominal pain Abnormal stress test Anemia Benign essential hypertension Bilateral cataracts BMI 24.0-24.9, adult BMI 25.0-25.9,adult BMI 26.0-26.9,adult BMI 27.0-27.9,adult BPH (benign prostatic hyperplasia) Cataract Chest pain Colon cancer screening Constipation Depressed mood Diabetes mellitus type 2, insulin dependent Diverticulosis DJD (degenerative joint disease) Elevated PSA Encounter for routine adult health examination with abnormal findings Encounter for routine adult health examination without abnormal findings Epicondylitis, lateral, left Follow up Gastroparesis Hearing loss History of elevated PSA Hyperkeratosis Hypersomnolence Internal thrombosed hemorrhoids Left foot pain Low back pain Medial epicondylitis of right elbow Mucocele of buccal mucosa Non-healing skin lesion RUEL (obstructive sleep apnea) Pain of thigh Personal history of COVID-19 RLS (restless legs syndrome) Sciatica Short-term memory loss Shoulder pain, bilateral Tinnitus of both ears Trigger finger of right hand Vitamin D deficiency Family History Family History Father Diabetes mellitus Hypertension Family history of arthritis Family history of Alzheimer's disease Mother Family history of arthritis Family history of lymphoma Social History Social History Smoking status: Current some day smoker Tobacco type: cigars Second hand tobacco smoke exposure: Yes Ad
[2024-01-27 07:19] LABS: Glucose Point of Care 125 mg/dl (65-105)
--- NOTE | 2024-01-27 07:47 | WPDHPUPDATE1 ---
History and Physical Update Update Date/Time: 01/27/24 07:47 History and Physical has been reviewed, including an updated exam of the patient. There are NO changes in the patient's condition. Risks, benefits, and alternatives have been discussed and questions answered. Patient agrees to proceed with procedure.
[2024-01-27] MEDS: ceFAZolin 2 GM/D5W 50 ML 2 GM/50 ML BAG IVPB (07:58)
[2024-01-27] MEDS: BUPIVACAINE/EPINEPHRINE 0.5% 50 ML VIAL 40 ML INFILTRATE (08:19)
--- NOTE | 2024-01-27 08:52 | P.OP_ITS ---
Procedure Note - Detailed Date of Procedure 01/27/24 Pre-op Diagnosis Chr Anal Fissure, external hemorrhoid Post-op Diagnosis Same Procedure Performed Excision external hemorrhoid, left lateral internal sphincterotomy Surgeon Cody Clifford MD General Office Assistant Amanda Morris RN Anesthesia General and Local Indications Patient has had rectal pain for a couple of years. He attributed it to a thrombosed external hemorrhoid but exam in the office showed a posterior midline anal fissure with large external hemorrhoid or sentinel tag. He is taken to surgery now for sphincterotomy and excision of the external hemorrhoid. Findings Posterior midline anal fissure, external hemorrhoid posterior midline Description of Procedure Patient was taken to surgery and induced into general anesthesia. He was then turned into prone molly-knife position. The buttocks were taped apart. Prep and drape was carried out. Small Hill-Sotelo anoscope was introduced and the findings as noted above were confirmed. Local anesthetic was then infiltrated using 0.5% bupivacaine with epinephrine. 20 cc deep subdermal and 20 cc intrasphincteric were used. I then placed mild tension on the external hemorrhoid and excised it at its base. Cautery was used to achieve hemostasis. After attempting this, hemostasis was still not adequate. I then placed 2 interrupted 3-0 chromic suture to close the wound. Hemostasis was good after this. I then placed a small and then medium Hill-Sotelo anoscope into the rectum. A small incision was made over the lower 3rd of the internal sphincter muscle. Using a curved clamp, I dissected out the lower 3rd of the internal sphincter muscle and elevated it from the wound. I then used the cautery to divide the internal sphincter muscle. There was skin bleeding and bleeding from the innermost aspect of the resultant wound. I tried cautery and pressure. There was still more oozing than should be. I then placed a single 3-0 chromic suture at the most proximal edge of the wound, including some of the deeper tissues. This provided good hemostasis but still had a sizable wound for adequate drainage. Gentle pressure was still held and the wounds were examined. No further bleeding was noted. The rectum was dressed with Xeroform gauze fluffs and an ABD. Patient was then returned to a supine position. He was awakened and extubated. He transferred to recovery in good condition. Sponge and needle counts were correct x2. Estimated Blood Loss -10 Drains No Packing No Pathology Yes (External hemorrhoid) Complications None Condition Stable Disposition PACU [facility] Billing Surgery - Charge Forward: Surgery Billing (Excision external hemorrhoid, lateral internal sphincterotomy.)
[2024-01-27 10:20] LABS: Glucose Point of Care 108 mg/dl (65-105)
== END 2024-01-27 10:30 | disposition home or self-care (01) ==
PROVIDERS: PCP Internal Medicine; Visit Provider Surgery
PROC: (CPT 46230; principal; 2024-01-27 07:30)
DX: K60.1 Chronic anal fissure (principal); K64.4 Residual hemorrhoidal skin tags; L91.8 Other hypertrophic disorders of the skin; I10 Essential (primary) hypertension; D64.9 Anemia, unspecified; E11.9 Type 2 diabetes mellitus without complications; N40.0 Benign prostatic hyperplasia without lower urinary tract symptoms; E55.9 Vitamin D deficiency, unspecified; G25.81 Restless legs syndrome; G89.18 Other acute postprocedural pain; K31.84 Gastroparesis; L85.9 Epidermal thickening, unspecified; G47.33 Obstructive sleep apnea (adult) (pediatric); F17.290 Nicotine dependence, other tobacco product, uncomplicated; Z80.7 Family history of other malignant neoplasms of lymphoid, hematopoietic and related tissues; Z96.41 Presence of insulin pump (external) (internal)
CPT/HCPCS: 46230; 46999; 82948; 88304; A9270; J0330; J0690; J1100; J1885; J2405; J2704; J3010; J7120

== ENCOUNTER 2024-03-10 13:45 | Outpatient (CLI) | payer BC, SELFPAY ==
--- NOTE | ~2024-03-10 | XR_ITS ---
3 VIEWS LUMBAR SPINE Ordering provider: Amari Delong MD History: . M25.511 - Pain in right shoulder . Comparison: None. FINDINGS: VERTEBRAL BODIES: No visible fracture or subluxation. DISK SPACES: Narrowing of the disc L4-L5 and L5-S1. SOFT TISSUES: Normal. IMPRESSION: No acute osseous abnormality lumbar spine. Reviewed, dictated and finalized at location A.
--- NOTE | ~2024-03-10 | XR_ITS ---
Right Shoulder Technique: AP and scapular Y views were obtained. Clinical History: Pain Findings: No fracture or dislocation is seen. Osseous alignment is anatomic. The glenohumeral joint d emonstrate mild degenerative change, with small humeral head spur. AC joint intact. Soft tissues are unremarkable. Impression: Mild glenohumeral joint degenerative change. Reviewed, dictated and finalized at location . Impression: Mild glenohumeral joint degenerative change.
--- NOTE | ~2024-03-10 | XR_ITS ---
AP view of the pelvis and AP and lateral views of the left hip Clinical history: Pain Findings: No acute fracture or dislocation is seen. Osseous alignment is anatomic. Bilateral hip and SI joint spaces are preserved. Soft tissues are unremarkable. Impression: No significant abnormality is seen. Reviewed, dictated and finalized at [facility]. Impression: No significant abnormality is seen.
== END 2024-03-10 13:46 | disposition home or self-care (01) ==
PROVIDERS: PCP Internal Medicine; Visit Provider Internal Medicine
DX: M25.511 Pain in right shoulder (principal); G89.29 Other chronic pain; M54.50 Low back pain, unspecified; M25.561 Pain in right knee; M25.551 Pain in right hip
CPT/HCPCS: 72100; 73030; 73502; 73562